=== PATIENT | female | born 1985 | race Caucasian/White ===

== ENCOUNTER 2016-10-22 11:46 | Emergency (ER) | payer SELFPAY ==
[~2016-10-22] VITALS: Ht 177.8 cm; Wt 61.2 kg
--- NOTE | 2016-10-22 12:19 | NUR ---
PT IS IN ROOM #2A. DR HAYWARD EVALUATED THE PT.
--- NOTE | 2016-10-22 13:11 | NUR ---
pt was d/c to home. d/c instructions given to the pt.
[2016-10-22 13:12] VITALS: BP 128/65
== END 2016-10-22 13:13 | disposition home or self-care (01) ==
LOC: ER 11:56
DX: S93.602A Unspecified sprain of left foot, initial encounter (principal); W01.0XXA Fall on same level from slipping, tripping and stumbling without subsequent striking against object, initial encounter; Y93.89 Activity, other specified; Y92.9 Unspecified place or not applicable; Y99.9 Unspecified external cause status
CPT/HCPCS: 73630; A4663

== ENCOUNTER 2017-02-21 22:56 | Emergency (ER) | payer BC, OTHER ==
[~2017-02-21] VITALS: Ht 177.8 cm; Wt 59.9 kg
--- NOTE | 2017-02-22 | NUR ---
Patient walked in to ER c/o nose pain. Patient states that approximately 12 hours ago she was opening a car door when it collided with the right side of her nose. Patient states she has had previous nose surgery which she is concerned the nose may have more deformities than if she hadn't had the surgery. Patient states she has pain only when she touches her nose and states 0/10 pain at rest. To room 3A.
--- NOTE | 2017-02-22 00:21 | NUR ---
Patient discharged to home in stable conditon. Written and verbal after care instructions given. Patient verbalizes understanding of instructions.
== END 2017-02-22 00:24 | disposition home or self-care (01) ==
LOC: ER 22:59
DX: S02.2XXA Fracture of nasal bones, initial encounter for closed fracture (principal); W22.8XXA Striking against or struck by other objects, initial encounter; Y93.9 Activity, unspecified; Y92.89 Other specified places as the place of occurrence of the external cause; Y99.8 Other external cause status
CPT/HCPCS: 99281; A4663